=== PATIENT | female | born 1965 | race Caucasian/White ===

== ENCOUNTER 2018-01-26 21:17 | Emergency (ER) | payer BC ==
[2018-01-26 21:27] VITALS: BP 133/88
--- NOTE | 2018-01-26 21:38 | ED Physician Documentation ---
PD HPI SKIN - Stated complaint Stated Complaint: RASH - Chief complaint Chief Complaint: General - History obtained from History obtained from: Patient - History of Present Illness Timing - onset: How many days ago (3-4 days of left neck and side of head pain. Started with rash 2 days ago and seen by PMD, Dx shingles. Rx Valtrex, which patient is taking, but having severe pain despite OTC Tylenol and Ibuprofen.) Timing - details: Gradual onset, Still present Location: Scalp, Face Quality / character: Painful, Discolored, Vesicular. No: Draining Associated symptoms: No: Fever, Myalgias, N/V/D Similar symptoms before: Has not had sx before Recently seen: Clinic Review of Systems Constitutional: reports: Myalgias. denies: Fever, Chills Eyes: denies: Loss of vision, Decreased vision, Photophobia Respiratory: denies: Dyspnea, Cough Neurologic: denies: Focal weakness, Numbness, Confused, Altered mental status, Headache PD PAST MEDICAL HISTORY - Past Medical History Cardiovascular: None Respiratory: None Neuro: None Endocrine/Autoimmune: None - Present Medications Home Medications: Ambulatory Orders Medication Instructions Recorded Confirmed Amitriptyline [Elavil] 25 mg PO HS #30 tablet 01/26/18 Dexamethasone [Decadron] 4 mg PO DAILY #5 tablet 01/26/18 HYDROcod/ACETAM 5/325 [[place] 5/325] 1 tab PO Q6H PRN #20 tablet 01/26/18 Valacyclovir HCl [Valacyclovir] 1,000 mg PO TID #15 tablet 01/26/18 - Allergies Allergies/Adverse Reactions: Allergies Allergy/AdvReac Type Severity Reaction Status Date / Time No Known Drug Allergies Allergy Verified 01/26/18 21:22 PD ED PE NORMAL - Vitals Vital signs reviewed: Yes - General General: Alert and oriented X 3, Well developed/nourished, Other (appears in pain due to the shingles. Alert and not having diffuse headache. ) - HEENT HEENT: PERRL, EOMI (no light sensitivity), Pharynx benign, Other (left posterior neck, back of head up to upper forehead area, and pinna of ear with patchy vesicular rash with clear/yellow colored blister fluid. blisters intact. Tender in rash area. No purulence noted. ) - Neck Neck: Supple, no meningeal sign, Other (left anterior adenopathy) - Cardiac Cardiac: RRR, No murmur - Respiratory Respiratory: Clear bilaterally - Derm Derm: Normal color, Warm and dry - Neuro Neuro: Alert and oriented X 3, No motor deficit, Normal speech Results - Vitals Vitals: Vital Signs - 24 hr 01/26/18 21:22 Temperature 36.6 C Heart Rate 73 Respiratory 16 Rate Blood Pressure 133/88 H O2 Saturation 96 Oxygen O2 Source Room air PD MEDICAL DECISION MAKING - ED course Complexity details: considered differential (had been given Rx for Valtrex for the shingles. Having a lot of pain. She could have probably been treated with more meds by PMD. ), d/w patient Departure - Departure Disposition: 01 Home, Self Care Clinical Impression: Shingles outbreak Qualifiers: Herpes zoster complications: without complications Qualified Code(s): B02.9 - Zoster without complications Condition: Stable Record reviewed to determine appropriate education?: Yes Instructions: ED Shingles Follow-Up: Joao Banks MD [Primary Care Provider] - Prescriptions: Amitriptyline [Elavil] 25 mg PO HS #30 tablet Dexamethasone [Decadron] 4 mg PO DAILY #5 tablet HYDROcod/ACETAM 5/325 [[place] 5/325] 1 tab PO Q6H PRN #20 tablet PRN Reason: Pain Valacyclovir HCl [Valacyclovir] 1,000 mg PO TID #15 tablet Comments: Continue the valacyclovir another 5-7 days. Decadron steroid for inflammation for 5 more days. Amitriptyline to help reduce the nerve irritation from the shingles nightly for the next several weeks. Add Tylenol or hydrocodone as needed for pain. Discharge Date/Time: 01/26/18 22:38
[2018-01-26] MEDS ORDERED: HYDROcod/ACET 5/325 Prepack 4 PO STA (21:52)
[2018-01-26] MEDS ORDERED: HYDROcod/ACETAM 5/325 MG TABLET PO STA (21:52)
[2018-01-26] MEDS ORDERED: DEXAMETHASONE 10 MG/ML VIAL PO STA (21:52)
[2018-01-26] MEDS ORDERED: AMITRIPTYLINE 25 MG TABLET PO STA (21:52)
[2018-01-26] MEDS ORDERED: CHERRY SYRUP 10 ML UDC PO ONE (21:59)
== END 2018-01-26 22:38 | disposition home or self-care (01) ==
LOC: ED 21:17
DX: B02.9 Zoster without complications (principal)
CPT/HCPCS: 99283; A9270

== ENCOUNTER 2021-03-01 10:34 | Emergency (ER) | payer BC ==
[2021-03-01 10:49] VITALS: BP 121/73
--- NOTE | 2021-03-01 11:35 | Ultrasound Report ---
PROCEDURE: Duplex Ext Veins Left , Ultrasound INDICATIONS: pain/swelling TECHNIQUE: Real-time imaging, as well as color and pulse Doppler interrogation, were performed of the lower extr emity deep veins from the inguinal ligament to the popliteal fossa. COMPARISON: None. FINDINGS: The deep veins are normally compressible, and free of intraluminal thrombus. Color and pu lse Doppler demonstrate normal phasic intraluminal flow. There is normal augmentation response to di stal compression maneuver. IMPRESSION: No evidence of deep venous thrombosis, bilateral lower extremities Reviewed by: Navin Loza MD on 03/01/2021 10:34 AM [facility] Approved by: Navin Loza MD on 03/01/2021 10:34 AM [facility] Station ID: [id number]
--- NOTE | 2021-03-01 11:59 | ED Physician Documentation ---
History of Present Illness - Stated complaint Stated Complaint: L LEG PX/SWELLING - Chief complaint Chief Complaint: Ext Problem - History obtained from History obtained from: Patient - Additonal information Additional information: Patient comes emergency department chief complaint of left thigh pain that extends down to her knee. She states she has had a feeling of a "lump" in her left medial thigh, but that she did quite a bit of yard work a few days ago and then got out of bed suddenly last night and feels that she may have strained the area. However, it seems to be getting worse and patient came worried about a possible DVT. No history of DVT. No chest pain shortness of breath. Patient is not a smoker. No recent immobility. She is not on control. No other complaints at this time. No swelling in her lower leg. Review of Systems Ten Systems: 10 systems reviewed and negative Constitutional: reports: Reviewed and negative Eyes: reports: Reviewed and negative Ears: reports: Reviewed and negative Nose: reports: Reviewed and negative Throat: reports: Reviewed and negative Cardiac: reports: Reviewed and negative Respiratory: reports: Reviewed and negative GI: reports: Reviewed and negative : reports: Reviewed and negative Skin: reports: Reviewed and negative Musculoskeletal: reports: Extremity pain Neurologic: reports: Reviewed and negative Psychiatric: reports: Reviewed and negative Endocrine: reports: Reviewed and negative Immunocompromised: reports: Reviewed and negative PD PAST MEDICAL HISTORY - Past Medical History Cardiovascular: None Respiratory: None Neuro: None Endocrine/Autoimmune: None GI: None 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 : None HEENT: None Psych: None Musculoskeletal: None Derm: None - Past Surgical History Past Surgical History: Yes General: Other - Present Medications Home Medications: Ambulatory Orders Medication Instructions Recorded Confirmed Amitriptyline [Elavil] 25 mg PO HS #30 tablet 01/26/18 HYDROcod/ACETAM 5/325 [[place] 5/325] 1 tab PO Q6H PRN #20 tablet 01/26/18 Valacyclovir HCl [Valacyclovir] 1,000 mg PO TID #15 tablet 01/26/18 dexAMETHasone [Decadron] 4 mg PO DAILY #5 tablet 01/26/18 - Allergies Allergies/Adverse Reactions: Allergies Allergy/AdvReac Type Severity Reaction Status Date / Time No Known Drug Allergies Allergy Verified 03/01/21 10:44 - Social History Does the pt smoke?: No Smoking Status: Never smoker Does the pt drink ETOH?: Yes Does the pt have substance abuse?: No - Immunizations Immunizations are current?: No - POLST Patient has POLST: No PD ED PE NORMAL - Vitals Vital signs reviewed: Yes - General General: Alert and oriented X 3, No acute distress, Well developed/nourished - HEENT HEENT: Atraumatic, PERRL, EOMI, Moist mucous membranes - Neck Neck: Supple, no meningeal sign - Cardiac Cardiac: Strong equal pulses - Respiratory Respiratory: No respiratory distress - Derm Derm: Normal color, Warm and dry, No rash - Extremities Extremities: No deformity, No edema, No calf tenderness / cord, Other (Tenderness palpation of the left medial thigh soft tissue without palpable mass or cord. No edema of the knee. No effusion.) - Neuro Neuro: Alert and oriented X 3 - Psych Psych: Normal mood, Normal affect Results - Vitals Vitals: Vital Signs - 24 hr 03/01/21 10:39 Temperature 36.3 C L Heart Rate 62 Respiratory 16 Rate Blood Pressure 121/73 O2 Saturation 97 Oxygen O2 Source Room air - Rads (name of study) US LLE Radiology: Final report received, EMP read indepedently, See rad report (Negative) PD MEDICAL DECISION MAKING - ED course Complexity details: reviewed results, re-evaluated patient, considered differential, d/w patient ED course: Patient was worked up with an ultrasound of her left leg and this was found to be negative for DVT. We have discussed that the patient's symptoms are likely of a benign origin and we discussed symptomatic management at home. We also discussed the indications for follow-up and return. Departure - Departure Disposition: 01 Home, Self Care Clinical Impression: Leg pain, left Condition: Stable Instructions: ED Strain Muscle Ext Comments: Your ultrasound looks greatno evidence of a blood clot or fluid collection. As we discussed, you may have had a myofascial strain from getting out of bed or the yard work, or simply some myofascial inflammation. It is also possible that he had a cyst that ruptured and has caused some inflammation from the resultant fluid being pulled down by gravity. Either way, your symptoms are expected to improve on their own. You may use ice, heat, stretching, low impact exercise, and ibuprofen/Tylenol to help with the symptoms. Discharge Date/Time: 03/01/21 12:06
== END 2021-03-01 12:06 | disposition home or self-care (01) ==
LOC: ED 10:34
DX: M79.652 Pain in left thigh (principal)
CPT/HCPCS: 99282; 99284